=== PATIENT | male | born 1985 | race Caucasian/White ===

== ENCOUNTER 2017-05-27 06:55 | Inpatient (IN) | payer OTHER ==
[2017-05-21 17:42] LABS: BASOPHILS % (AUTO) 0.6 % (0.0-2.0); EOSINOPHILS % (AUTO) 5.6 % (1.0-6.0); HEMATOCRIT 44.8 % (41-53); HEMOGLOBIN 15.6 g/dL (13.5-17.5); LYMPHOCYTES # (AUTO) 1.6 K/uL (1.0-4.8); LYMPHOCYTES % (AUTO) 36.7 % (22.0-44.0); MEAN CORPUSCULAR HEMOGLOBIN 30.1 pg (26.0-34.0); MEAN CORPUSCULAR HGB CONC 34.9 G/dL (31.0-37.0); MEAN CORPUSCULAR VOLUME 86 fL (80-100); MONOCYTES # (AUTO) 0.6 K/uL (0.1-1.0); MONOCYTES % (AUTO) 13.8 % (2.0-9.0); NEUTROPHILS # (AUTO) 1.9 K/uL (1.8-7.7); NEUTROPHILS % (AUTO) 43.3 % (40.0-70.0); PLATELET COUNT (AUTO) 156 K/uL (150-450); RED BLOOD CELL COUNT(AUTO) 5.19 MIL/uL (4.50-5.90); RED CELL DISTRIBUTION WIDTH 13.5 % (11.5-14.5)
[2017-05-21 17:51] LABS: ANION GAP 8 mmol/L (8-16); CARBON DIOXIDE 26 mmol/L (22-29); CHLORIDE 107 mmol/L (98-107); CREATININE 1.03 mg/dL (0.60-1.30); GLUCOSE,RANDOM 84 mg/dL (70-110); POTASSIUM 3.8 mmol/L (3.5-5.1); SODIUM SERUM 141 mmol/L (136-145); UREA NITROGEN, BLOOD 19 mg/dL (7-18)
[2017-05-21 17:52] LABS: CALCIUM, TOTAL 8.6 mg/dL (8.8-10.5); GLOMERULAR FILTR. RATE CALC > 60 mL/min (>60)
[2017-05-21 17:55] LABS: PROTHROMBIN TIME 10.6 SEC (9.4-11.6)
[2017-05-21 17:58] LABS: ALANINE AMINOTRANSFERASE 46 U/L (12-78); ALBUMIN 3.5 g/dL (3.4-5.0); ALKALINE PHOSPHATASE 76 U/L (46-116); ASPARTATE AMINOTRANSFERASE 34 U/L (15-37); BILIRUBIN,TOTAL 0.3 mg/dL (0.1-1.0); TOTAL PROTEIN, SERUM 7.3 g/dL (6.4-8.2)
[~2017-05-27] VITALS: Ht 185.4 cm; Wt 160.0 kg
[~2017-05-27 06:55] MED LIST: BUPIVACAINE HCL/PF 0.5% 30 ML VIAL ONE; CeFAZolin 1 GM/DEXTROSE 50 ML IV ONE; GUM MASTIC/STORAX/MSAL/ALCOHOL LIQUID 0.67 ML VIAL TP ONE; RINGERS SOLUTION,LACTATED 1,000 ML IV ONE; VANCOMYCIN HCL 1 GM/VIAL ONE
[2017-05-27] MEDS ORDERED: RINGERS SOLUTION,LACTATED 1,000 ML IV ONE (08:30)
[2017-05-27] MEDS ORDERED: MAG HYDROX/AL HYDROX/SIMETH 30 ML SUSP UDCUP PO PRN (09:45)
[2017-05-27] MEDS ORDERED: PROMETHAZINE HCL 12.5 MG in SODIUM CHLORIDE 0.9% 50 ML IV PRN (09:45)
[2017-05-27] MEDS ORDERED: BENZOCAINE/MENTHOL LOZENGE [8 LOZENGES/PACKET] PO PRN (09:45)
[2017-05-27] MEDS ORDERED: ZOLPIDEM TARTRATE 10 MG TABLET PO PRN (09:45)
[2017-05-27] MEDS ORDERED: FentaNYL CITRATE-PF 100 MCG/2 ML VIAL IVP ONE (09:52)
[2017-05-27] MEDS ORDERED: MIDAZOLAM HCL 2 MG/2 ML VIAL IVP ONE (09:52)
[2017-05-27] MEDS ORDERED: ACETAMINOPHEN 1000 MG/ISO-OSM 100 ML IV ONE (10:07)
[2017-05-27] MEDS ORDERED: ONDANSETRON HCL 4 MG/2 ML VIAL IVP ONE (10:11)
[2017-05-27] MEDS ORDERED: ROCURONIUM BROMIDE 10 MG/ML 5 ML VIAL IVP ONE (10:11)
[2017-05-27] MEDS ORDERED: PROPOFOL 1% 20 ML VIAL IVP ONE (10:11)
[2017-05-27] MEDS ORDERED: SUCCINYLCHOLINE CHLORIDE 20 MG/ML 10 ML VIAL IVP ONE (10:11)
[2017-05-27] MEDS ORDERED: KETOROLAC TROMETHAMINE 60 MG/2 ML VIAL IM ONE (10:11)
[2017-05-27] MEDS ORDERED: LIDOCAINE HCL/PF 2% 5 ML VIAL INJ ONE (10:11)
[2017-05-27] MEDS ORDERED: DEXAMETHASONE SOD PHOS 4 MG/ML VIAL IVP ONE (10:11)
[2017-05-27] MEDS ORDERED: PROMETHAZINE HCL 25 MG/ML VIAL IM PRN (10:15)
[2017-05-27] MEDS ORDERED: MEPERIDINE-PF 25 MG/ML SYRINGE IVP PRN (10:15)
[2017-05-27] MEDS ORDERED: OxyCODONE HCL/ACETAMINOPHEN 10-325 MG TABLET PO PRN (10:15)
[2017-05-27] MEDS ORDERED: FentaNYL CITRATE-PF 100 MCG/2 ML VIAL IVP PRN (10:15)
[2017-05-27] MEDS ORDERED: ONDANSETRON HCL 4 MG/2 ML VIAL IVP PRN (10:15)
[2017-05-27] MEDS ORDERED: ZOLPIDEM TARTRATE 5 MG TABLET PO PRN (10:15)
[2017-05-27] MEDS ORDERED: HYDROmorphone 2 MG/ML SYRINGE IVP PRN (10:15)
[2017-05-27] MEDS ORDERED: BUPIVACAINE LIPOSOME/PF 1.3%-13.3MG/ML SUSPENSION 10 ML VIAL INJ ONE (10:30)
[2017-05-27] MEDS ORDERED: HYDROmorphone 2 MG/ML SYRINGE ONE (11:23)
[2017-05-27 12:00] VITALS: BP 145/84
[2017-05-27] MEDS: HYDROmorphone 2 MG/ML SYRINGE IVP PRN ×3 (12:43→20:45)
[2017-05-27] MEDS ORDERED: INFLUENZA VIRUS VACCINE QVS 2017-18 (3YR+)/PF 60 MCG/0.5 ML SYRINGE IM ONE (15:30)
[2017-05-27 17:28] VITALS: BP 142/98
[2017-05-27] MEDS ORDERED: OXYGEN THERAPY IH SCH (20:00)
[2017-05-27 20:12] VITALS: BP 125/64
[2017-05-27] MEDS: DOCUSATE SODIUM 100 MG CAPSULE PO SCH (20:46)
[2017-05-28] VITALS: BP 128/63
[2017-05-28] MEDS: HYDROmorphone 2 MG/ML SYRINGE IVP PRN ×2 (01:02→05:50)
[2017-05-28 05:43] VITALS: BP 141/68
[2017-05-28 07:54] VITALS: BP 138/70
[2017-05-28] MEDS: DOCUSATE SODIUM 100 MG CAPSULE PO SCH (08:45)
== END 2017-05-28 10:45 | disposition home or self-care (01) | DRG 519 ==
LOC: 4S 06:55 → 4E 11:55
PROVIDERS: ADMIT Orthopaedic Surgery Orthopaedic Surgery of the Spine; ATTEND Orthopaedic Surgery Orthopaedic Surgery of the Spine
PROC: 0SB40ZZ Excision of Lumbosacral Disc, Open Approach (ICD-10-PCS; 2017-05-27)
PROC: 0SB20ZZ Excision of Lumbar Vertebral Disc, Open Approach (ICD-10-PCS; principal; 2017-05-27 11:00)
DX: M51.26 Other intervertebral disc displacement, lumbar region (principal); Z68.42 Body mass index [BMI] 45.0-49.9, adult; E66.01 Morbid (severe) obesity due to excess calories
CPT/HCPCS: 87081; 93005; 97161; 97165; J0131; J0330; J0690; J1100; J1170; J1885; J2250; J2405; J2704; J3010; J3370; J3490; J7120